=== PATIENT | female | born 1965 | race Two or more races ===

== ENCOUNTER 2020-10-14 10:12 | Outpatient (CLI) | payer OTHER | END 2020-10-14 10:23 | disposition home or self-care (01) | LOC: LAB 10:12 | PROVIDERS: ATTEND Specialist | DX: D50.8 Other iron deficiency anemias (principal); N39.0 Urinary tract infection, site not specified; E11.42 Type 2 diabetes mellitus with diabetic polyneuropathy; E78.2 Mixed hyperlipidemia; K76.0 Fatty (change of) liver, not elsewhere classified; E03.8 Other specified hypothyroidism; E55.9 Vitamin D deficiency, unspecified ==

== ENCOUNTER 2020-10-16 10:30 | Outpatient (CLI) | payer OTHER | END 2020-10-16 11:41 | disposition home or self-care (01) | LOC: LAB 10:30 | PROVIDERS: ATTEND Specialist | DX: E06.0 Acute thyroiditis (principal); K29.00 Acute gastritis without bleeding; E11.9 Type 2 diabetes mellitus without complications; E04.0 Nontoxic diffuse goiter; D50.8 Other iron deficiency anemias ==